=== PATIENT | male | born 1965 | race Native Hawaiian/Other Pacific Islander ===

== ENCOUNTER 2016-09-26 17:14 | Emergency (ER) | payer BC ==
[~2016-09-26] VITALS: Ht 182.9 cm; Wt 136.1 kg
[2016-09-26 17:51] LABS: PLATELET COUNT 232 K/uL (142-355)
[2016-09-26 18:06] LABS: POTASSIUM 3.5 mmol/L (3.6-5.2)
== END 2016-09-26 21:40 | disposition home or self-care (01) ==
LOC: ED 17:14
DX: K80.20 Calculus of gallbladder without cholecystitis without obstruction (principal); R07.89 Other chest pain
CPT/HCPCS: 80053; 84484; 85027; 86318; 93005; 99284; J2270; Q9963